=== PATIENT | male | born 1975 | race Caucasian/White ===

== ENCOUNTER 2020-12-11 17:08 | Emergency (ER) | payer OTHER ==
[~2020-12-11] VITALS: Ht 180.3 cm; Wt 99.8 kg
[~2020-12-11 17:08] MED LIST: ALPR0.5T2 PO; PAX20 PO; TERB1CRE TP; VIC PO
[2020-12-11 17:15] VITALS: BP 135/80
[2020-12-11] MEDS ORDERED: LIDOCAINE MPF 1% 10 MG/ML VIAL INJ ONE ×2 (17:35)
[2020-12-11] MEDS ORDERED: HYDROcodone/APAP 5/325 MG 1 TAB TAB PO ONE (17:35)
[2020-12-11] MEDS ORDERED: NAPR-54 PO (17:55)
[2020-12-11] MEDS ORDERED: BACITRACIN OINT 500 UNITS/GM PKT TP ONE ×2 (17:55)
[2020-12-11 18:10] VITALS: BP 135/80
== END 2020-12-11 18:09 | disposition home or self-care (01) ==
LOC: MED 17:08
DX: S51.812A Laceration without foreign body of left forearm, initial encounter (principal); X58.XXXA Exposure to other specified factors, initial encounter; Y93.89 Activity, other specified; Y92.89 Other specified places as the place of occurrence of the external cause; Y99.8 Other external cause status; Z79.899 Other long term (current) drug therapy
CPT/HCPCS: 12002; 90471; 90715; 99283; J2001; 12001

== ENCOUNTER 2020-12-28 18:15 | Emergency (ER) | payer OTHER ==
[~2020-12-28] VITALS: Ht 177.8 cm; Wt 86.6 kg
[~2020-12-28 18:15] MED LIST changes: +NAPR-54 PO
[2020-12-28 18:19] VITALS: BP 143/81
--- NOTE | 2020-12-28 18:38 | NUR ---
APPLIED [place] WRAP TO LEFT ARM WITHOUT ANY ISSUES
[2020-12-28 18:42] VITALS: BP 143/81
--- NOTE | 2020-12-28 18:42 | NUR ---
Patient discharged with v/s stable. Written and verbal after care instructions given and explained. Patient verbalized understanding. Ambulatory with steady gait. All questions addressed prior to discharge. Advised to follow up with PMD.
--- NOTE | 2020-12-28 18:42 | NUR ---
PT PRESENTS FOR SUTURE REMOVAL OF LEFT FOREARM, PT STATES HE HAD SUTURES PLACED ABOUT 10 DAYS AGO. PT STATES HE IS HAVING MILD PAIN TO AREA AND "FEELS LIKE IT NEEDS SUPPORT"
== END 2020-12-28 18:42 | disposition home or self-care (01) ==
LOC: MED 18:15
DX: S51.812D Laceration without foreign body of left forearm, subsequent encounter (principal); Z48.00 Encounter for change or removal of nonsurgical wound dressing; Z86.19 Personal history of other infectious and parasitic diseases; X58.XXXD Exposure to other specified factors, subsequent encounter
CPT/HCPCS: 99282

== ENCOUNTER 2022-06-15 19:05 | Emergency (ER) | payer OTHER ==
[~2022-06-15] VITALS: Ht 180.3 cm; Wt 102.3 kg
[2022-06-15 19:10] VITALS: BP 99/57
--- NOTE | 2022-06-15 19:18 | NUR ---
MG. HANDED ON URINE CUP.
[2022-06-15] MEDS ORDERED: NACL 0.9% 2,000 ML IV ONE (19:35)
[2022-06-15] MEDS ORDERED: KETOROLAC 30 MG/ML VIAL IVP ONE (19:35)
[2022-06-15 19:55] LABS: BASOPHILS % (AUTO) 0.2 % (0.0-2.0); HEMATOCRIT 41.2 % (36-52); HEMOGLOBIN 13.9 g/dL (12.0-18.0); LYMPHOCYTES # (AUTO) 1.1 K/uL (2.0-11.5); LYMPHOCYTES % (AUTO) 6.8 % (20.5-51.1); MEAN CORPUSCULAR HEMOGLOBIN 29 pg (27-31); MEAN CORPUSCULAR HGB CONC 34 g/dL (33-37); MEAN CORPUSCULAR VOLUME 84.5 fL (80-94); MONOCYTES # (AUTO) 0.5 K/uL (0.8-1.0); MONOCYTES % (AUTO) 3.3 % (1.7-9.3); NEUTROPHILS # (AUTO) 14.2 K/uL (1.8-7.7); NEUTROPHILS % (AUTO) 89.7 % (42.2-75.2); PLATELET COUNT (AUTO) 208 K/uL (140-450); RED BLOOD CELL COUNT(AUTO) 4.87 MIL/uL (4.20-6.10); RED CELL DISTRIBUTION WIDTH 13.8 % (11.6-13.7); WHITE BLOOD COUNT (AUTO) 15.9 K/uL (4.8-10.8)
--- NOTE | 2022-06-15 20:22 | NUR ---
PT TO BED 3
[2022-06-15] MEDS ORDERED: cefTRIAXone 1,000 MG VIAL ONE (20:28)
[2022-06-15 20:33] LABS: ANION GAP 10.1 (8-16); CARBON DIOXIDE 28.7 mmol/L (21-32); CREATININE 1.1 mg/dL (0.6-1.3); POTASSIUM 3.8 mmol/L (3.5-5.1); TOTAL BILIRUBIN 1.1 mg/dL (0.0-1.0)
[2022-06-15] MEDS ORDERED: SULF-59 PO (20:53)
[2022-06-15] MEDS ORDERED: IBUP-1842 PO (20:53)
[2022-06-15] MEDS ORDERED: CEPH-588 PO (20:53)
[2022-06-15] MEDS ORDERED: SULFAMETH/TRIMETH DS 800/160MG 1 TAB PO ONE (20:55)
--- NOTE | 2022-06-15 21:24 | NUR ---
PT'S SLEEPING, WAKEN UP AND GIVEN 1 DOSE OF BACTRIM. SWALLOWED WITHOUT ANY DIFFICULTY. NO N/V AND NO C/O PAIN. STABLE VITAL SIGNS.
--- NOTE | 2022-06-15 21:26 | NUR ---
Patient discharged with v/s stable. Written and verbal after care instructions given and explained. Patient alert, oriented and verbalized understanding of instructions. Ambulatory with steady gait. All questions addressed prior to discharge. ID band removed. Patient advised to follow up with PMD. Rx of KEFLEX MOTRIN BACTRIM given.
[2022-06-15 21:27] VITALS: BP 100/57
--- NOTE | 2022-06-15 21:29 | NUR ---
PT ORDERED DC HOME.
[2022-06-15 21:49] LABS: APPEARANCE,URINE CLEAR (CLEAR); BILIRUBIN,URINE NEGATIVE (NEGATIVE); BLOOD, URINE NEGATIVE (NEGATIVE); COLOR,URINE YELLOW (YELLOW); LEUKOCYTE ESTERASE ,URINE NEGATIVE (NEGATIVE); NITRITE, URINE NEGATIVE (NEGATIVE); UGLUCOSE NEGATIVE (NEGATIVE)
== END 2022-06-15 21:26 | disposition home or self-care (01) ==
LOC: MED 19:05
DX: L03.115 Cellulitis of right lower limb (principal); M79.10 Myalgia, unspecified site; Z79.899 Other long term (current) drug therapy; Z86.19 Personal history of other infectious and parasitic diseases; Z88.6 Allergy status to analgesic agent
CPT/HCPCS: 36415; 73590; 80053; 83605; 85025; 87040; 87086; 93971; 96365; 96375; 99285; J0696; J1885; Q0092